=== PATIENT | male | born 1965 | race American Indian/Alaskan Native ===

== ENCOUNTER 2019-04-13 08:25 | Day surgery (SDC) | payer OTHER ==
[~2019-04-13 08:25] MED LIST: MARCAINE 0.25% INFILTRATI ONE; XYLOCAINE 1% 20 mL ONE
[2019-04-13] MEDS ORDERED: ANCEF/STERILE WATER 2 GM/20 ML 2 GM/20 ML SYRINGE IV NR (09:00)
[2019-04-13] MEDS ORDERED: LACTATED RINGERS 1,000 ML IV SCH (09:00)
--- NOTE | 2019-04-13 09:00 | Anesthesia Consultation ---
Anesthesia Consult and Med Hx Date of service: 04/13/19 - Airway Anesthetic Teeth Evaluation: Good ROM Head & Neck: Adequate Mental/Hyoid Distance: Adequate Mallampati Class: Class II Intubation Access Assessment: Good - Pulmonary Exam CTA: Yes - Cardiac Exam Cardiac Exam: RRR - Pre-Operative Health Status ASA Pre-Surgery Classification: ASA2 Proposed Anesthetic Plan: General - Cardiovascular System Hx Hypertension: Yes
[2019-04-13] MEDS ORDERED: ZOFRAN IV PRN (09:01)
--- NOTE | 2019-04-13 09:01 | Anesthesia Day of Surgery ---
Anesthesia Day of Surgery - Day of Surgery Patient Examined: Yes Patient H&P Reviewed: Yes Patient is NPO: Yes
[2019-04-13] MEDS ORDERED: DIPRIVAN 10 MG/ML IV ONE (09:07)
[2019-04-13] MEDS ORDERED: SUBLIMAZE ONE (09:07)
[2019-04-13] MEDS ORDERED: VERSED ONE (09:48)
[2019-04-13] MEDS ORDERED: ZOFRAN ONE (11:11)
[2019-04-13] MEDS ORDERED: XYLOCAINE MPF 2% ONE (11:11)
[2019-04-13] MEDS ORDERED: DECADRON ONE (11:11)
[2019-04-13] MEDS ORDERED: PHENYLEPHRINE/NS Syringe 1,000 MCG/10 ML IV ONE (11:11)
--- NOTE | 2019-04-13 11:51 | Operative Report ---
PREOPERATIVE DIAGNOSIS: Very large hydrocele, right side, smaller left side elevated PSA. POSTOPERATIVE DIAGNOSES: Very large hydrocele, right side, smaller left side, elevated PSA. PROCEDURE: Right scrotal exploration, right hydrocelectomy, prostate ultrasound with flexible cystoscopy, and biopsy of the prostate under ultrasound guidance. SURGEON: Brooks Navarro MD. ANESTHESIA: General. FINDINGS: This is a 53-year-old gentleman who had some hematuria, which was very unclear exactly, but was on his shorts during the toilet. He also has had increased PSA, previous treatment for prostate cancer and he has also had a huge right hydrocele, now presents for treatment. DESCRIPTION OF PROCEDURE: The patient was brought to the operating room and placed on the operating table. Following induction of anesthesia, placed in the supine position, prepped and draped in usual sterile fashion. Right oblique incision was made over the scrotum and a large amount of thickened scrotal fascia was noted. The area was cauterized. We dissected down to tunica vaginalis and delivered at least 300 mL of clear fluid was evacuated out the tunica vaginalis. Once we isolated it away from the surrounding fascial layers. The testis was somewhat atrophic measuring approximately 3 cm. At this point, a large amount of tunica vaginalis was excised and oversewn with 3-0 chromic. The patient tolerated the procedure well. Wound was irrigated. A 0.5 inch Tulio placed in the dependent portion of the scrotum. Fascia was approximated with 3-0 chromic, skin with interrupted 2-0 chromic. The patient tolerated the procedure well. The drain was secured with a silk. At this point, the patient was placed in lithotomy position, prepped and draped in usual sterile fashion. We used Betadine rectal swabs to clean the area. The ultrasound was placed, which showed a very small prostate and biopsies 6 on the right, 6 on the left were carried out. The patient tolerated the procedure well. His PSA ranges from 4-11 and he may have recurrent prostate cancer. Biopsies were obtained, brought to recovery room in stable condition. Specimen was sent, which was tunica vaginalis and the prostate biopsy. There was also a scrotal bernadette in the scrotum. He was brought to recovery in stable condition. JOB# [id number] JUICE/SEJAL
[2019-04-13] MEDS: DILAUDID IV PRN ×2 (12:15→12:30)
--- NOTE | 2019-04-13 12:32 | Post Operative Note ---
Date of procedure: 04/13/19 Pre-op diagnosis: cap inc psa hydrocele Post-op diagnosis: same Findings: as above Procedure: r hydrocelectomy pus bx cysto Anesthesia: GETA Surgeon: EMORY QUINTERO Estimated blood loss: minimal Pathology: list (sac prostate) Specimen disposition: to lab Condition: stable Disposition: PACU
--- NOTE | 2019-04-13 12:33 | Discharge Summary ---
Short Stay Discharge Plan Activity: other (ice to scrotum ) Weight Bearing Status: Full Weight Bearing Diet: regular Wound: open to air, other (ice and dressing changed prn ) Special Instructions: other (has manuel ) Follow up with: PRIMARY CARE, [Primary Care Provider] - 7 Days EMORY QUINTERO MD [Staff Physician] - 3 Days
--- NOTE | 2019-04-13 15:24 | Post Anesthesia Evaluation ---
- Post Anesthesia Evaluation Patient Participated: Yes Airway Patent: Yes Stable Respiratory Function: Yes Temp > 96.8F: Yes Pain Manageable: Yes Adequeate Hydration: Yes Anesthesia Complications: No Block Receding Appropriately: Yes
[2019-04-13 15:34] VITALS: BP 120/75
--- NOTE | 2019-04-16 07:37 | Ultrasound Report ---
Intraoperative transrectal prostate ultrasound INDICATION: Intraoperative prostate biopsy, elevated PSA Two transrectal images were obtained during a prostate biopsy procedure by Dr. Navarro in conjunctio n with radiology personnel. Prostatic calcifications are seen. Prostate dimensions were measured at 4 .6 x 2.5 x 2.9 cm with volume calculated at 17.2 cc. Signer Name: Jerry Liu MD Signed: 04/16/2019 7:33 AM Workstation Name: [id number]
== END 2019-04-13 14:15 ==
LOC: OR 08:25 → EEVIPCON 08:25 → OR 14:15
PROVIDERS: ATTEND Urology
DX: N43.2 Other hydrocele (principal); I10 Essential (primary) hypertension; N42.89 Other specified disorders of prostate; N41.8 Other inflammatory diseases of prostate; Z79.82 Long term (current) use of aspirin; Z88.8 Allergy status to other drugs, medicaments and biological substances
CPT/HCPCS: 55040; 55899; 76872; 82803; 88305; 88341; 88344; J0690; J1100; J1170; J2250; J2370; J2405; J2704; J3010; J7120; 76999; 88302; 88342

== ENCOUNTER 2019-10-09 08:39 | Outpatient (CLI) | payer OTHER ==
[2019-10-09 09:46] LABS: Blood Urea Nitrogen 12 mg/dL (9-20)
--- NOTE | 2019-10-09 11:04 | Cat Scan Report ---
CT ABDOMEN AND PELVIS WITH CONTRAST HISTORY: RECURRENT CA PROSTATE COMPARISON: None. TECHNIQUE: Axial CT images were obtained through the abdomen and pelvis after 100 cc of Omnipaque 300 intravenously. Sagittal and coronal reformatted images. All CT scans at this location are performed using CT dose reduction for ALARA by means of automated exposure control. FINDINGS: CT ABDOMEN: Lung Bases: Clear. Liver: No significant abnormality. 3 subcentimeter cysts are noted in the central liver parenchyma. Biliary: No significant abnormality. Spleen: No significant abnormality. Unenlarged. Pancreas: No significant abnormality. Adrenals: No significant abnormality. Kidneys: Scattered bilateral renal cysts are identified with the largest measuring 3.6 cm in the mid left kidney. The ureters are normal course and caliber. Lymphatics: No lymphadenopathy. Vasculature: No significant abnormality. Bowel/Peritoneum: There are multiple diverticula in the distal descending colon. No evidence for foca l inflammation or bowel obstruction. Normal appendix. CT PELVIS: : The prostate gland is unremarkable measuring 4.5 cm in diameter. Normal bladder and distal ureter s. No pelvic cyst or mass. Osseous Structures: No blastic bony lesions are identified to suggest metastatic disease. Small bone islands are noted in the right femoral head and left ischium. Additional Findings: Small umbilical hernia containing fat is noted. No complication. IMPRESSION: No evidence for metastatic disease to the abdomen and pelvis. Scattered liver and renal cysts. Mild diverticulosis of the distal colon. Small umbilical hernia containing fat. Signer Name: William Kurtz Jr, MD Signed: 10/09/2019 11:00 AM Workstation Name: [id number]
--- NOTE | 2019-10-09 14:09 | Nuclear Medicine Report ---
NUCLEAR MEDICINE BONE SCAN, WHOLE BODY INDICATION: RECURRENT CA PROSTATE. TECHNIQUE: 27.3 mCi of Tc-99m MDP were injected IV. Whole body images were obtained. COMPARISON: CT abdomen pelvis with contrast performed the same day. FINDINGS: Skeletal Structures: Fairly symmetric, likely degenerative uptake is present involving the shoulders and spine. Skeletal Lesions: None. Soft Tissues: Normal. Kidneys: Normal, symmetric activity. Additional Findings: None. IMPRESSION: No evidence for osseous metastasis. Signer Name: William Kurtz Jr, MD Signed: 10/09/2019 2:04 PM Workstation Name: [id number]
== END 2019-10-09 08:40 | disposition home or self-care (01) ==
LOC: NM 08:39
PROVIDERS: ATTEND Specialist
DX: K57.30 Diverticulosis of large intestine without perforation or abscess without bleeding (principal); K42.9 Umbilical hernia without obstruction or gangrene; N28.1 Cyst of kidney, acquired; I10 Essential (primary) hypertension; C61 Malignant neoplasm of prostate; K76.89 Other specified diseases of liver
CPT/HCPCS: 36415; 74177; 78306; 82565; 84520; A9503; Q9967

== ENCOUNTER 2021-04-27 07:46 | Outpatient (CLI) | payer OTHER ==
--- NOTE | 2021-04-27 10:23 | Cat Scan Report ---
CT ABDOMEN AND PELVIS WITHOUT CONTRAST INDICATION: PROSTATE CANCER. TECHNIQUE: Axial CT images were obtained through the abdomen and pelvis without IV contrast. All CT scans at [facility] are performed using CT dose reduction for ALARA by means of automated exposure control. COMPARISON: CT abdomen pelvis 10/09/2019 FINDINGS: LOWER CHEST: Mild linear scarring right middle and lower lobes, unchanged. No pulmonary nodule or mas s LIVER: 2 tiny subcentimeter hepatic cysts. GALLBLADDER: No significant abnormality. BILE DUCTS: No significant abnormality. PANCREAS: No significant abnormality. SPLEEN: No significant abnormality. ADRENALS: No significant abnormality. RIGHT KIDNEY and URETER: Stable right renal cysts LEFT KIDNEY and URETER: Stable left renal cysts STOMACH and SMALL BOWEL: No significant abnormality. COLON: Mild to moderate colonic diverticulosis, unchanged. APPENDIX: Normal PERITONEUM: No free fluid. No free air. No fluid collection. LYMPH NODES: No significant adenopathy. AORTA and ARTERIES: No significant abnormality. IVC and VEINS: No significant abnormality. URINARY BLADDER: No significant abnormality. REPRODUCTIVE ORGANS: No significant abnormality. ADDITIONAL FINDINGS: Small fat-containing umbilical hernia again noted. SKELETAL SYSTEM: Stable sclerotic bone island anterior aspect right femoral head and left ischium, un changed. No blastic skeletal metastases. IMPRESSION: 1. No CT evidence for intra-abdominal, pelvic or skeletal metastases or interval change 2. Clonic diverticulosis and small fat-containing umbilical hernia Signer Name: Darell Davis MD Signed: 04/27/2021 10:19 AM Workstation Name: [id number]
--- NOTE | 2021-04-27 11:34 | Nuclear Medicine Report ---
NUCLEAR MEDICINE WHOLE BODY BONE IMAGING STUDY. HISTORY: PROSTATE CANCER COMPARISON: Bone scan 10/09/2019. TECHNIQUE: The patient was administered 26.4 mCi of technetium 99m labeled MDP intravenously. FINDINGS: There is bilateral, relatively symmetric articular activity which is most likely degenerative given t he distribution and symmetry. No asymmetric radiotracer activity is seen within the included axial and appendicular skeleton. There is normal soft tissue activity in the kidneys and urinary bladder. IMPRESSION: No scintigraphic evidence of osseous metastatic disease. Presumed degenerative changes, as above. Signer Name: Clifton Hernandez MD Signed: 04/27/2021 11:30 AM Workstation Name: [id number]
== END 2021-04-27 07:47 | disposition home or self-care (01) ==
LOC: NM 07:46
PROVIDERS: ATTEND Specialist
DX: C61 Malignant neoplasm of prostate (principal); N28.1 Cyst of kidney, acquired; K57.30 Diverticulosis of large intestine without perforation or abscess without bleeding; K42.9 Umbilical hernia without obstruction or gangrene
CPT/HCPCS: 74176; 78306; A9503